=== PATIENT | male | born 1975 | race Two or more races ===

== ENCOUNTER 2020-07-30 19:35 | Emergency (ER) | payer OTHER ==
[~2020-07-30] VITALS: Ht 193 cm; Wt 136.1 kg
[2020-07-30] MEDS ORDERED: KETOROLAC TROMETH 60MG/2ML VIAL IM ONE (21:30)
[2020-07-30] MEDS ORDERED: ONDANSETRON ODT 4 MG TAB PO ONE (23:00)
[2020-07-30] MEDS ORDERED: HYDROcodone-ACET 10/325MG TAB PO ONE (23:00)
[2020-07-31 01:05] VITALS: BP 136/69
== END 2020-07-31 02:44 | disposition home or self-care (01) ==
LOC: EDBD 19:36 → ER 19:36
DX: S33.5XXA Sprain of ligaments of lumbar spine, initial encounter (principal); M54.16 Radiculopathy, lumbar region; R07.89 Other chest pain; F17.210 Nicotine dependence, cigarettes, uncomplicated; X58.XXXA Exposure to other specified factors, initial encounter; Y93.89 Activity, other specified; Y92.89 Other specified places as the place of occurrence of the external cause; Y99.8 Other external cause status
CPT/HCPCS: 72100; 72131; 72220; 96372; 99284; J1885; Q0162

== ENCOUNTER 2021-12-31 22:07 | Emergency (ER) | payer OTHER ==
[~2021-12-31] VITALS: Ht 193 cm; Wt 127.0 kg
[2022-01-01 00:32] LABS: Basophils # (auto) 0.1 10 ^3/uL (0-0.2); Basophils % (auto) 1.3 % (0.0-2.0); Eosinophils # (auto) 0.4 10 ^3/uL (0-0.8); Eosinophils % (auto) 4.5 % (0.0-7.0); Hemoglobin 13.6 g/dL (13.5-17.5); Lymphocytes # (auto) 1.9 10 ^3/uL (0.4-5.4); Lymphocytes % (auto) 21.2 % (10.0-50.0); Mean Corpuscular Volume 88.2 fL (80.0-100.0); Monocytes # (auto) 0.7 10 ^3/uL (0-1.3); Neutrophils # (auto) 5.9 10 ^3/uL (1.6-8.6); Nucleated Red Blood Cells % 0.1 %; Red Blood Cells 4.54 10^6/uL (4.5-5.90); Red Cell Distribution Width 13.1 % (11.8-14.3); White Blood Cell 9.1 10^3/uL (4.4-10.8)
[2022-01-01] MEDS: MORPHINE SULFATE 4 MG/ML SYR/VIAL IV ONE (00:42)
[2022-01-01] MEDS: ONDANSETRON HCL 4 MG/2 ML VIAL IV ONE (00:42)
[2022-01-01] MEDS: IOHEXOL 300 MG/ML 100ML BOTTLE IJ ONE (00:43)
[2022-01-01 00:53] LABS: Albumin 3.1 g/dL (3.4-5.0); BUN/Creatinine Ratio 9.5; Calcium 8.1 mg/dL (8.5-10.1); Potassium 3.7 mmol/L (3.5-5.1)
[2022-01-01 00:55] LABS: Bilirubin, Total 0.2 mg/dL (0.2-1.0)
[2022-01-01] MEDS: HYDROmorphone HCL 2 MG/ML VL IV ONE (03:00)
[2022-01-01 03:31] VITALS: BP 138/84
[2022-01-01] MEDS ORDERED: PERCOT PO (05:23)
== END 2022-01-01 05:17 | disposition home or self-care (01) ==
LOC: EDBD 22:07 → ER 22:13
DX: K40.90 Unilateral inguinal hernia, without obstruction or gangrene, not specified as recurrent (principal); F17.210 Nicotine dependence, cigarettes, uncomplicated; E11.9 Type 2 diabetes mellitus without complications; I10 Essential (primary) hypertension; F12.10 Cannabis abuse, uncomplicated
CPT/HCPCS: 36415; 74177; 80053; 85025; 96374; 96375; 99285; J1170; J2270; J2405; Q9967

== ENCOUNTER 2022-04-06 19:56 | Emergency (ER) | payer OTHER ==
[~2022-04-06] VITALS: Ht 190.5 cm; Wt 122.5 kg
[~2022-04-06 19:56] MED LIST: PERCOT PO
[2022-04-06 20:00] VITALS: BP 139/72
== END 2022-04-07 11:25 | disposition left against medical advice (07) ==
LOC: EDBD 19:56 → ER 19:56
DX: R10.2 Pelvic and perineal pain (principal); Z53.21 Procedure and treatment not carried out due to patient leaving prior to being seen by health care provider

== ENCOUNTER 2022-05-12 18:38 | Emergency (ER) | payer OTHER ==
[~2022-05-12] VITALS: Ht 188 cm; Wt 91.0 kg
[2022-05-12 19:07] VITALS: BP 137/90
== END 2022-05-13 03:39 | disposition home or self-care (01) ==
LOC: EDBD 18:38 → ER 18:38
DX: F10.129 Alcohol abuse with intoxication, unspecified (principal); I10 Essential (primary) hypertension; E11.9 Type 2 diabetes mellitus without complications; F17.210 Nicotine dependence, cigarettes, uncomplicated; Z79.899 Other long term (current) drug therapy; Y90.9 Presence of alcohol in blood, level not specified